=== PATIENT | female | born 1990 | race Two or more races ===

== ENCOUNTER 2016-05-07 16:35 | Outpatient (CLI) | payer MEDICAID ==
[~2016-05-07] VITALS: Ht 154.9 cm; Wt 72.7 kg
[2016-05-07] MEDS ORDERED: ACETAMINOPHEN 325 MG TABLET ONE (17:26)
[2016-05-07] MEDS ORDERED: ACETAMINOPHEN 325 MG TABLET PO PRN (17:30)
[2016-05-07 18:07] VITALS: BP 108/55
[2016-05-07] MEDS ORDERED: PREN-3 PO (20:14)
[2016-05-07] MEDS ORDERED: ONDANSETRON ODT 4 MG ONE (20:16)
[2016-05-07] MEDS ORDERED: ONDANSETRON 8 MG TABLET PO ONE (20:30)
== END 2016-05-07 20:30 | disposition home or self-care (01) ==
LOC: LDOP 16:35
PROVIDERS: ATTEND Obstetrics & Gynecology Gynecology
DX: O26.893 Other specified pregnancy related conditions, third trimester (principal); R10.9 Unspecified abdominal pain; R51 Headache; Z3A.00 Weeks of gestation of pregnancy not specified
CPT/HCPCS: 59025; 81001; 87081; 99201; Q0162; G0463

== ENCOUNTER 2016-05-21 20:55 | Outpatient (CLI) | payer MEDICAID ==
[~2016-05-21] VITALS: Ht 154.9 cm; Wt 72.7 kg
[~2016-05-21 20:55] MED LIST: PREN-3 PO
[2016-05-21] MEDS ORDERED: ZOLPIDEM 5MG TABLET PO ONE (22:00)
[2016-05-21] MEDS ORDERED: ZOLPIDEM 5MG TABLET ONE (22:10)
[2016-05-31] MEDS ORDERED: IBUP-1222 PO (15:40)
[2016-05-31] MEDS ORDERED: OXYC-302 PO (15:42)
== END 2016-05-21 22:18 | disposition home or self-care (01) ==
LOC: LDOP 20:55
PROVIDERS: ATTEND Obstetrics & Gynecology Gynecology
DX: O26.893 Other specified pregnancy related conditions, third trimester (principal); R10.9 Unspecified abdominal pain; Z3A.39 39 weeks gestation of pregnancy
CPT/HCPCS: 59025; 99211; G0463

== ENCOUNTER 2016-09-08 14:16 | Emergency (ER) | payer MEDICAID ==
[~2016-09-08] VITALS: Ht 157.5 cm; Wt 68.4 kg
[~2016-09-08 14:16] MED LIST changes: +IBUP-1222 PO; +OXYC-302 PO
[2016-09-08 17:20] VITALS: BP 106/57
== END 2016-09-08 18:30 | disposition home or self-care (01) ==
LOC: ED 16:10
DX: O20.0 Threatened abortion (principal); O26.891 Other specified pregnancy related conditions, first trimester
CPT/HCPCS: 36415; 76801; 84702; 86901

== ENCOUNTER 2016-09-09 18:57 | Emergency (ER) | payer MEDICAID ==
[~2016-09-09] VITALS: Ht 154.9 cm; Wt 67.1 kg
[2016-09-09 19:39] LABS: BLOOD UREA NITROGEN 13 mg/dL (7-18)
[2016-09-09 20:12] VITALS: BP 110/66
== END 2016-09-09 21:03 | disposition home or self-care (01) ==
LOC: ED 19:49
DX: O03.4 Incomplete spontaneous abortion without complication (principal); Z3A.01 Less than 8 weeks gestation of pregnancy
CPT/HCPCS: 36415; 76801; 80048; 81003; 82040; 84702; 85025

== ENCOUNTER 2017-08-18 20:29 | Observation (INO) | payer MEDICAID ==
[~2017-08-18] VITALS: Ht 154.9 cm; Wt 68.2 kg
[2017-08-18 21:12] LABS: MICROSCOPIC INDICATED
[2017-08-18] MEDS ORDERED: ONDANSETRON ODT 4 MG ONE (21:29)
[2017-08-18] MEDS ORDERED: LACTATED RINGERS 1,000 ML IV SCH (21:30)
[2017-08-18] MEDS ORDERED: ONDANSETRON ODT 4 MG PO PRN (21:30)
[2017-08-18] MEDS ORDERED: D5%-LACTATED RINGERS 1,000 ML IV SCH (21:30)
[2017-08-18] MEDS ORDERED: PREN-59 PO (22:40)
[2017-08-18] MEDS ORDERED: IRON1TAB60 PO (22:40)
== END 2017-08-19 01:00 | disposition home or self-care (01) ==
LOC: LDOP 20:29 → LDIP 21:15
PROVIDERS: ADMIT Obstetrics & Gynecology Gynecology; ATTEND Obstetrics & Gynecology Gynecology
DX: O21.2 Late vomiting of pregnancy (principal); Z3A.28 28 weeks gestation of pregnancy; Z79.899 Other long term (current) drug therapy
CPT/HCPCS: 81001; 87086; 96360; 96361; G0378; J7120; Q0162; J7121

== ENCOUNTER 2017-10-07 10:24 | Outpatient (CLI) | payer MEDICAID ==
[~2017-10-07] VITALS: Ht 154.9 cm; Wt 76.0 kg
[~2017-10-07 10:24] MED LIST changes: +IRON1TAB60 PO; +PREN-59 PO
[2017-10-07 10:46] VITALS: BP 99/57
== END 2017-10-07 11:19 | disposition home or self-care (01) ==
LOC: LDOP 10:24
PROVIDERS: ATTEND Obstetrics & Gynecology Gynecology
DX: O26.893 Other specified pregnancy related conditions, third trimester (principal); R10.9 Unspecified abdominal pain; O13.3 Gestational [pregnancy-induced] hypertension without significant proteinuria, third trimester; O14.93 Unspecified pre-eclampsia, third trimester; Z3A.36 36 weeks gestation of pregnancy
CPT/HCPCS: 59025; 99211; G0463

== ENCOUNTER 2020-02-01 13:24 | Emergency (ER) | payer MEDICAID, OTHER ==
[~2020-02-01] VITALS: Ht 160 cm; Wt 65.0 kg
--- NOTE | 2020-02-01 13:37 | NUR ---
PT CAME IN FOR ALLERGIC REACTION. PT ATE A BAR WITH NUTS IN IT. PT DIDNT REALIZE THERE WAS CASHEWS IN IT UNTIL AFTER SHE ATE IT. PT STATES HER FACE, LIPS, AND TONGUE BECAME SWOLLEN. SHE WENT TO AND WAS GIVEN 125MG SOLUMEDROL AND 50MG BENADRYL. PT ALSO RECIEVED 250 ML NS MILK POWDER GRINDER. PT RESTING IN [facility] AND CURRENTLY IS ONLY CO OF MINOR THROAT TIGHTNESS. WILL CONTINUE TO MONITOR PT. CALL LIGHT WITHIN REACH. IS BEDSIDE. CONNECTED TO ALL MONITORING EQUIPMENT.
[2020-02-01] MEDS ORDERED: FAMOTIDINE 20 MG/2 ML ONE (13:41)
[2020-02-01] MEDS ORDERED: FAMOTIDINE 20 MG/2 ML IVPush ONE (14:30)
--- NOTE | 2020-02-01 14:30 | NUR ---
PT RESTING COMFORTABLY IN [facility]. NAD. VSS
[2020-02-01 16:34] VITALS: BP 104/75
== END 2020-02-01 16:36 | disposition home or self-care (01) ==
LOC: ED 15:39
DX: R21 Rash and other nonspecific skin eruption (principal); T78.1XXA Other adverse food reactions, not elsewhere classified, initial encounter; R06.02 Shortness of breath; R11.10 Vomiting, unspecified; R10.9 Unspecified abdominal pain; R22.0 Localized swelling, mass and lump, head; X58.XXXA Exposure to other specified factors, initial encounter
CPT/HCPCS: 96374; 99283